=== PATIENT | female | born 1960 | race American Indian/Alaskan Native ===

== ENCOUNTER 2021-10-26 15:46 | Emergency (ER) | payer MEDICAID ==
[2021-10-26] MEDS ORDERED: fentaNYL 100 MCG/2 ML INJ IV ONE (16:04)
[2021-10-26] MEDS ORDERED: ONDANSETRON 4 MG/2 ML INJ IV ONE (16:04)
[2021-10-26] MEDS ORDERED: SODIUM CHLORIDE 0.9% 1000 ML 1,000 ML IV ONE ×2 (16:04→18:54)
--- NOTE | 2021-10-26 16:08 | Emergency Department Report ---
HPI - General Chief Complaint: Abdominal Pain Time Seen by Provider: 10/26/21 15:49 - HPI HPI: Room 23 The patient is a 61-year-old female present with chief complaint of abdominal pain and diarrhea. Patient states her symptom began last night approximately 1 hour after eating a salad and a chicken wing prepared at [employer]. Patient states her ate the same food but did not get sick. Patient states approximate 1 hour after eating the food she developed diarrhea and lower abdominal pain. Patient states she has had over 10 episodes of diarrhea. Patient states she felt as though the pain was gas pain as was sharp and intermittent in nature. Patient states she tried home remedies but it did not help. Patient states she then developed nausea and vomiting. Patient denies dysuria but believes she had a subjective fever because she developed chills. Patient currently gives her abdominal pain a score of 10/10 ED Past Medical Hx - Past Medical History Previous Medical History?: No - Surgical History Past Surgical History?: No - Family History Family history: no significant - Social History Smoking Status: Current Some Day Smoker Substance Use Type: Alcohol (Occasional), Cocaine (Crack), Marijuana - Medications Home Medications: Home Medications Medication Instructions Recorded Confirmed Last Taken Type Diphenoxylate/Atropine [Lomotil] 2 tab PO QID PRN #20 10/26/21 Unknown Rx Promethazine [Phenergan] 25 mg PO Q6HR PRN #20 tab 10/26/21 Unknown Rx levoFLOXacin [Levaquin] 750 mg PO QDAY #10 tablet 10/26/21 Unknown Rx metroNIDAZOLE [Flagyl] 500 mg PO Q8HR #30 tablet 10/26/21 Unknown Rx ED Review of Systems ROS: Stated complaint: ABD PAIN Other details as noted in HPI Constitutional: chills, fever (Subjective) Eyes: denies: eye pain ENT: denies: throat pain Respiratory: no symptoms reported Cardiovascular: denies: chest pain Endocrine: no symptoms reported Gastrointestinal: abdominal pain, nausea, vomiting, diarrhea Genitourinary: denies: dysuria Musculoskeletal: denies: back pain Neurological: denies: headache Physical Exam - Physical Exam Vital Signs: Vital Signs 10/26/21 15:46 Pulse Rate 97 H Respiratory 14 Rate Blood Pressure 120/74 [Left] O2 Sat by Pulse 97 Oximetry Physical Exam: GENERAL: The patient is well-developed female lying on stretcher appearing to be in moderate discomfort HEENT: Normocephalic. Atraumatic. Extraocular motions are intact. Patient has moist mucous membranes. NECK: Supple. Trachea midline CHEST/LUNGS: Clear to auscultation. There is no respiratory distress noted. HEART/CARDIOVASCULAR: Regular. There is no tachycardia. There is no gallop rub or murmur. ABDOMEN: Abdomen is soft, with mild discomfort to palpation in the right/epigastric region. Absent Nuñez's sign. Patient has normal bowel sounds. There is no abdominal distention. SKIN: There is no rash. There is no edema. There is no diaphoresis. NEURO: The patient is awake, alert, and oriented. The patient is cooperative. The patient has no focal neurologic deficits. The patient has normal speech. GCS 15 MUSCULOSKELETAL: There is no CVA tenderness bilaterally. There is no evidence of acute injury. ED Course Vital Signs 10/26/21 15:46 Pulse Rate 97 H Respiratory 14 Rate Blood Pressure 120/74 [Left] O2 Sat by Pulse 97 Oximetry ED Medical Decision Making - Lab Data Result diagrams: 10/26/21 16:38 10/26/21 16:38 Laboratory Tests 10/26/21 10/26/21 10/26/21 16:38 16:38 Unknown WBC 7.2 RBC 4.09 Hgb 13.0 Hct 38.6 MCV 95 MCH 32 MCHC 34 RDW 12.9 L Plt Count 255 [place] % (Auto) Hat Body Inspector Add Manual Diff Complete Total Counted 100 Seg Neuts % (Manual) 63.0 Band Neutrophils % 1.0 Lymphocytes % (Manual) 16.0 Reactive Lymphs % (Man) 0 Monocytes % (Manual) 20.0 H Eosinophils % (Manual) 0 Basophils % (Manual) 0 Metamyelocytes % 0 Myelocytes % 0 Promyelocytes % 0 Blast Cells % 0 Nucleated RBC % Not Reportable Seg Neutrophils # Man 4.5 Band Neutrophils # 0.1 Lymphocytes # (Manual) 1.2 Abs React Lymphs (Man) 0.0 Monocytes # (Manual) 1.4 H Eosinophils # (Manual) 0.0 Basophils # (Manual) 0.0 Metamyelocytes # 0.0 Myelocytes # 0.0 Promyelocytes # 0.0 Blast Cells # 0.0 WBC Morphology Not Reportable Hypersegmented Neuts Not Reportable Hyposegmented Neuts Not Reportable Hypogranular Neuts Not Reportable Smudge Cells Not Reportable Toxic Granulation Not Reportable Toxic Vacuolation Not Reportable Dohle Bodies Not Reportable Pelger-Huet Anomaly Not Reportable Semaj Rods Not Reportable Platelet Estimate Consistent w auto Clumped Platelets Not Reportable Plt Clumps, EDTA Not Reportable Large Platelets Not Reportable Giant Platelets Not Reportable Platelet Satelliting Not Reportable Plt Morphology Comment Not Reportable RBC Morphology Not Reportable Dimorphic RBCs Not Reportable Polychromasia Not Reportable Hypochromasia Not Reportable Poikilocytosis Not Reportable Anisocytosis Not Reportable Microcytosis Not Reportable Macrocytosis Not Reportable Spherocytes Not Reportable Pappenheimer Bodies Not Reportable Sickle Cells Not Reportable Target Cells 1+ Tear Drop Cells Not Reportable Ovalocytes Not Reportable Helmet Cells Not Reportable [place] Bodies Not Reportable [place] Rings Not Reportable Tatums Cells Not Reportable Bite Cells Not Reportable Crenated Cell Not Reportable Elliptocytes Not Reportable Acanthocytes (Spur) Not Reportable Rouleaux Not Reportable Hemoglobin C Crystals Not Reportable Schistocytes Not Reportable Malaria parasites Not Reportable Aman Bodies Not Reportable Hem Pathologist Commnt No Sodium 136 L Potassium 3.9 Chloride 102.3 Carbon Dioxide 21 L Anion Gap 17 BUN 15 Creatinine 0.7 Estimated GFR > 60 BUN/Creatinine Ratio 21 Glucose 113 H Calcium 8.7 Total Bilirubin 0.70 AST 64 H ALT 53 Alkaline Phosphatase 117 Total Protein 8.6 H Albumin 3.6 L Albumin/Globulin Ratio 0.7 Lipase 13 Urine Bilirubin Neg Urine RBC (Auto) 2.0 U Epithel Cells (Auto) 5.0 - Radiology Data Radiology results: report reviewed (CT abdomen pelvis), image reviewed (CT abdomen pelvis) [facility] [address] [place] [address] Cat Scan Report Signed Patient: ELI LIEBERMAN MR#: [id number] : 1960 Acct:[id number] Age/Sex: 61 / F ADM Date: 10/26/21 Loc: ED Attending Dr: Ordering Physician: BLANCA ZULUAGA MD Date of Service: 10/26/21 Procedure(s): CT abdomen pelvis w con Accession Number(s): [id number] cc: BLANCA ZULUAGA MD CT ABDOMEN AND PELVIS WITH IV CONTRAST, 10/26/2021 INDICATION: Lower abdominal pain and diarrhea TECHNIQUE: Following the administration of intravenous contrast, multiple axial CT images of the abdomen and pelvis were acquired. Sagittal and coronal reformats were obtained. All CT performed at this facility utilize dose reduction techniques including automated exposure control, iterative reconstruction and weight based dosing when appropriate to reduce patient radiation dose to as low as reasonably achievable. COMPARISON: None FINDINGS: Lung bases: Limited imaging of the bilateral lung bases demonstrates no focal abnormality. ABDOMEN: LIVER/BILE DUCTS: No significant abnormality. GALL BLADDER: No significant abnormality. STOMACH: No significant abnormality. PANCREAS: No significant abnormality. SPLEEN: No significant abnormality. ADRENALS: No significant abnormality. RIGHT KIDNEY / URETER: No significant abnormality. LEFT KIDNEY / URETER: No significant abnormality. AORTA: The abdominal aorta is normal in caliber with minimal scattered atherosclerotic calcification. SMALL AND LARGE BOWEL: The small and large bowel are normal in caliber. There are multiple loops of hyperenhancing fluid-filled small bowel without evidence for obstruction. There are are mild inflammatory changes of the ascending colon with numerous associated diverticula. No extraluminal air is identified. APPENDIX: The appendix is visualized and appears normal. PELVIS: No free fluid is seen within the pelvis. The urinary bladder appears normal. The uterus contains a calcified fibroid. BONES AND SOFT TISSUES: No significant abnormality. There is a fat-containing ventral hernia. IMPRESSION: 1. Mild inflammatory changes along the ascending colon with numerous associated diverticula, suggesting colitis or diverticulitis. 2. Multiple loops of mildly enhancing fluid-filled small bowel loops suggestive of enteritis. 3. Calcified uterine fibroids. Signer Name: Katarzyna Stark MD Signed: 10/26/2021 7:19 PM Workstation Name: [id number] Transcribed By: EB Dictated By: Katarzyna Stark MD Electronically Authenticated By: Katarzyna Stark MD Signed Date/Time: 10/26/211918 DD/ 10 TD/TT: - Differential Diagnosis Enteritis, partial small bowel obstruction, diverticulitis, pancreatitis Critical care attestation.: If time is entered above; I have spent that time in minutes in the direct care of this critically ill patient, excluding procedure time. ED Disposition Clinical Impression: Acute abdominal pain, Diarrhea Disposition: 01 HOME / SELF CARE / HOMELESS Is pt being admited?: No Does the pt Need Aspirin: No Condition: Stable Instructions: Abdominal Pain, Adult, [id number], Diarrhea, Adult, [id number], Abdominal Pain (ED) Additional Instructions: Return to the emergency department should you develop worsening symptoms, in ability to tolerate food or liquids, high fever or any other concerns Prescriptions: metroNIDAZOLE [Flagyl] 500 mg PO Q8HR #30 tablet levoFLOXacin [Levaquin] 750 mg PO QDAY #10 tablet Diphenoxylate/Atropine [Lomotil] 2 tab PO QID PRN #20 PRN Reason: Diarrhea Promethazine [Phenergan] 25 mg PO Q6HR PRN #20 tab PRN Reason: Nausea Referrals: EMILY BLUNT MD [Staff Physician] - 3-5 Days (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 Please follow-up with him for further evaluation) Time of Disposition: 19:39
[2021-10-26 17:02] LABS: Hematocrit 38.6 % (30.3-42.9); Mean Corpuscular HGB Conc 34 % (30-34); Mean Corpuscular Volume 95 fl (79-97); Platelet Count 255 K/mm3 (140-440); Red Blood Count 4.09 M/mm3 (3.65-5.03); Red Cell Distribution Width 12.9 % (13.2-15.2)
[2021-10-26 17:14] LABS: Alanine Aminotransferase 53 units/L (7-56); Albumin 3.6 g/dL (3.9-5); Blood Urea Nitrogen 15 mg/dL (7-17); Calcium 8.7 mg/dL (8.4-10.2); Hemolysis Index 22
[2021-10-26 17:19] LABS: BUN/Creatinine Ratio 21
[2021-10-26 18:08] LABS: Total Cells Counted 100
[2021-10-26 18:09] LABS: Band Neutrophils # (Manual) 0.1 K/mm3; Basophils % (Manual) 0 % (0.0-1.8); Eosinophils % (Manual) 0 % (0.0-4.3); Platelet Estimate Consistent w Auto; Target Cells 1+
--- NOTE | 2021-10-26 19:23 | Cat Scan Report ---
CT ABDOMEN AND PELVIS WITH IV CONTRAST, 10/26/2021 INDICATION: Lower abdominal pain and diarrhea TECHNIQUE: Following the administration of intravenous contrast, multiple axial CT images of the abdo men and pelvis were acquired. Sagittal and coronal reformats were obtained. All CT performed at this facility utilize dose reduction techniques including automated exposure control, iterative reconstru ction and weight based dosing when appropriate to reduce patient radiation dose to as low as reasonab ly achievable. COMPARISON: None FINDINGS: Lung bases: Limited imaging of the bilateral lung bases demonstrates no focal abnormality. ABDOMEN: LIVER/BILE DUCTS: No significant abnormality. GALL BLADDER: No significant abnormality. STOMACH: No significant abnormality. PANCREAS: No significant abnormality. SPLEEN: No significant abnormality. ADRENALS: No significant abnormality. RIGHT KIDNEY / URETER: No significant abnormality. LEFT KIDNEY / URETER: No significant abnormality. AORTA: The abdominal aorta is normal in caliber with minimal scattered atherosclerotic calcification. SMALL AND LARGE BOWEL: The small and large bowel are normal in caliber. There are multiple loops of h yperenhancing fluid-filled small bowel without evidence for obstruction. There are are mild inflammat ory changes of the ascending colon with numerous associated diverticula. No extraluminal air is ident ified. APPENDIX: The appendix is visualized and appears normal. PELVIS: No free fluid is seen within the pelvis. The urinary bladder appears normal. The uterus conta ins a calcified fibroid. BONES AND SOFT TISSUES: No significant abnormality. There is a fat-containing ventral hernia. IMPRESSION: 1. Mild inflammatory changes along the ascending colon with numerous associated diverticula, suggesti ng colitis or diverticulitis. 2. Multiple loops of mildly enhancing fluid-filled small bowel loops suggestive of enteritis. 3. Calcified uterine fibroids. Signer Name: Katarzyna Stark MD Signed: 10/26/2021 7:19 PM Workstation Name: [id number]
[2021-10-26 19:24] LABS: Bilirubin,Urine NEG (Negative); Blood,Urine NEG (Negative); Color,Urine Yellow (Yellow); Mucus,Urine FEW /HPF; Protein,Urine <15 mg/dL mg/dL (Negative); Urobilinogen,Urine < 2.0 mg/dL (<2.0)
[2021-10-26 19:40] VITALS: BP 128/68
== END 2021-10-26 21:04 | disposition home or self-care (01) ==
LOC: ED 15:46
DX: R10.9 Unspecified abdominal pain (principal); R19.7 Diarrhea, unspecified; F17.200 Nicotine dependence, unspecified, uncomplicated
CPT/HCPCS: 36415; 74177; 80053; 81001; 83690; 85007; 85025; 96361; 96374; 96375; 99284; J2405; J3010; J7030; Q9967; Q0162